=== PATIENT | female | born 1935 | race Caucasian/White ===

== ENCOUNTER → 2016-06-07 | Outpatient (CLI) | payer OTHER, MEDICARE | LOC: MW.CHIM 08:00 | PROVIDERS: ATTEND Internal Medicine | DX: I25.10 Atherosclerotic heart disease of native coronary artery without angina pectoris (principal); J44.1 Chronic obstructive pulmonary disease with (acute) exacerbation; R73.01 Impaired fasting glucose; F17.211 Nicotine dependence, cigarettes, in remission | CPT/HCPCS: G0463 ==

== ENCOUNTER → 2016-06-15 | Outpatient (CLI) | payer MEDICARE, OTHER ==
[2016-06-15 16:29] LABS: CHLORIDE,CL 107 mmol/L (98-110); SODIUM,NA 141 mmol/L (136-146)
== END ==
LOC: MW.CHIM 15:28
PROVIDERS: ATTEND Internal Medicine
DX: I20.8 Other forms of angina pectoris (principal); R06.00 Dyspnea, unspecified; I25.10 Atherosclerotic heart disease of native coronary artery without angina pectoris; J44.1 Chronic obstructive pulmonary disease with (acute) exacerbation; I50.30 Unspecified diastolic (congestive) heart failure; E78.4 Other hyperlipidemia
CPT/HCPCS: 36415; 80048; 83880; G0463

== ENCOUNTER → 2016-07-16 | Outpatient (CLI) | payer MEDICARE, OTHER ==
[2016-07-16 15:30] LABS: CHLORIDE,CL 106 mmol/L (98-110); SODIUM,NA 139 mmol/L (136-146)
== END ==
LOC: MW.CHIM 14:45
PROVIDERS: ATTEND Internal Medicine
DX: I50.30 Unspecified diastolic (congestive) heart failure (principal)
CPT/HCPCS: 36415; 80048; 87081; 87880; 99214

== ENCOUNTER → 2016-07-27 | Outpatient (CLI) | payer MEDICARE, OTHER | LOC: MW.CHGS 08:00 | PROVIDERS: ATTEND Surgery | DX: R49.9 Unspecified voice and resonance disorder (principal); K21.9 Gastro-esophageal reflux disease without esophagitis | CPT/HCPCS: 99203 ==

== ENCOUNTER → 2016-08-19 | Outpatient (CLI) | payer MEDICARE, OTHER | LOC: MW.CHIM 08:00 | PROVIDERS: ATTEND Internal Medicine | DX: I25.10 Atherosclerotic heart disease of native coronary artery without angina pectoris (principal); I50.30 Unspecified diastolic (congestive) heart failure; J44.9 Chronic obstructive pulmonary disease, unspecified; K21.9 Gastro-esophageal reflux disease without esophagitis | CPT/HCPCS: 99214 ==

== ENCOUNTER → 2016-08-20 | Outpatient (CLI) | payer MEDICARE, OTHER | LOC: MW.CHGS 08:00 | PROVIDERS: ATTEND Surgery | DX: K21.9 Gastro-esophageal reflux disease without esophagitis (principal) | CPT/HCPCS: G0463 ==

== ENCOUNTER 2016-09-08 11:56 | Day surgery (SDC) | payer MEDICARE, OTHER ==
[~2016-09-08 11:56] MED LIST: Lactated Ringers 1,000 ML IV SCH; Lidocaine 2% 5 ML SDV ONE; Propofol 200 MG/20 ML SDV ONE; Sodium Chloride 0.9% 10 ML Syringe FLUSH PRN; Sodium Chloride 0.9% 2.5 ML Syringe FLUSH PRN
--- NOTE | 2016-09-08 12:47 | PCM.PREANE ---
Preanesthetic Assessment - Anesthesia/Transfusion/Family Hx Anesthesia History: Prior Anesthesia Without Reaction Family History of Anesthesia Reaction: No Transfusion History: No Prior Transfusion(s) Intubation History: Unknown - Review of Systems General: No Symptoms Pulmonary: No Symptoms Cardiovascular: No Symptoms Gastrointestinal: Abdominal pain, Other (severe GERD) Neurological: No Symptoms Other: Reports: None - Physical Assessment Height: 1.55 m Weight: 104.326 kg ASA Class: 3 Mental Status: Alert & Oriented x3 Airway Class: Mallampati = 2 Dentition: Reports: Normal Dentition Thyro-Mental Finger Breadths: 3 Mouth Opening Finger Breadths: 3 ROM/Head Extension: Limited/Partial Lungs: Clear to auscultation, Normal respiratory effort, Decreased breath sounds Cardiovascular: Regular Rate, Regular Rhythm - Allergies Allergies/Adverse Reactions: Allergies Allergy/AdvReac Type Severity Reaction Status Date / Time Penicillins Allergy Cannot Verified 01/30/15 13:11 Remember - Blood Blood Available: No - Anesthesia Plan Pre-Op Medication Ordered: None - Acknowledgements Anesthesia Type Planned: MAC Pt an Appropriate Candidate for the Planned Anesthesia: Yes Alternatives and Risks of Anesthesia Discussed w Pt/Guardian: Yes Pt/Guardian Understands and Agrees with Anesthesia Plan: Yes PreAnesthesia Questionnaire HEENT History: Reports: Other (See Below) Other HEENT History: wears reading glasses Cardiovascular History: Reports: Arrhythmia, CAD, Heart Failure (HFpEF), High Cholesterol, Hypertension Respiratory History: Reports: COPD (severe, easy SOB) Other Respiratory History: smoked for 60 yrs, quit 4 yrs ago Gastrointestinal History: Reports: GERD (severe), Irritable Bowel Syndrome Genitourinary History: Reports: UTI, 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: , Other (See Below) Other OB/BYN History: vulvitis Musculoskeletal History: Reports: Fracture, Fibromyalgia, Osteoarthritis Other Musculoskeletal History: hx fx rt hand Psychiatric History: Reports: Anxiety, Depression Endocrine/Metabolic History: Reports: Obesity/BMI 30+ (BMI 43.5), Other (See Below) (h/o thyroiditis) - Past Surgical History Head Surgeries/Procedures: Reports: None Cardiovascular Surgical History: Reports: Cardiac Ablation Other Cardiovascular Surgeries/Procedures: hx cardiac ablation, hx angiogram, GI Surgical History: Reports: Colonoscopy Female Surgical History: Reports: Breast Biopsy (lumpectomy) Neurological Surgical History: Reports: Lumbar Spine Other Neurological Surgeries/Procedures: hx lower back surgery - SUBSTANCE USE Smoking Status *Q: Former Smoker (quit 4 years ago, smoked for about 60 years) Tobacco Use Within Last Twelve Months: No Recreational Drug Use History: No - HOME MEDS Home Medications: Home Meds Albuterol [Proventil HFA] 2 puff INH QID PRN 08/19/16 [History] Aspirin [[place] Aspirin] 81 mg PO DAILY 08/19/16 [History] Carvedilol 25 mg PO BID 08/19/16 [History] Furosemide 80 mg PO DAILY 08/19/16 [History] Pantoprazole Sodium [Protonix] 20 mg PO DAILY 08/19/16 [History] Potassium Chloride 2 tab PO DAILY 08/19/16 [History] Sertraline HCl 100 mg PO DAILY 08/19/16 [History] Tiotropium [place] [Spiriva Respimat] 2 puff INH DAILY 08/19/16 [History] atorvaSTATin Calcium [Atorvastatin Calcium] 20 mg PO DAILY 08/19/16 [History] Clobetasol [Clobetasol 0.05%] 1 applic VAG ASDIRECTED 09/03/16 [History] Cranberry 500 mg PO DAILY 09/03/16 [History] - CURRENT (IN HOUSE) MEDS Current Meds: Current Medications Lactated Ringer's (Ringers, Lactated) 1,000 mls @ 125 mls/hr IV ASDIRECTED [facility] Last Admin: 09/08/16 12:20 Dose: 125 mls/hr Sodium Chloride (Saline Flush) 10 ml FLUSH ASDIRECTED PRN PRN Reason: Keep Vein Open Sodium Chloride (Saline Flush) 2.5 ml FLUSH ASDIRECTED PRN PRN Reason: Keep Vein Open Discontinued Medications Lidocaine (Xylocaine-Mpf 2%) Confirm Administered Dose 5 ml .ROUTE .STK-MED ONE Stop: 09/08/16 11:35 Propofol (Diprivan 20 Ml) Confirm Administered Dose 400 mg .ROUTE .STK-MED ONE Stop: 09/08/16 11:36
[2016-09-08] MEDS ORDERED: Propofol 200 MG/20 ML SDV ONE (14:34)
--- NOTE | 2016-09-08 15:32 | PCM.OPNOTE ---
- General Post-Op/Procedure Note Date of Surgery/Procedure: 09/08/16 Operative Procedure(s): Diagnostic EGD Findings: Small hiatal hernia, otherwise normal Pre Op Diagnosis: Dysphagia, voice changes Post-Op Diagnosis: Hiatal hernia Anesthesia Technique: [facility] [place] Surgeon: Virginia Jacinto Condition: Good
--- NOTE | 2016-09-08 15:36 | PCM.POSTAN ---
POST ANESTHESIA ASSESSMENT - MENTAL STATUS Mental Status: alert, oriented - RESPIRATORY Respiratory Status: respiratory rate WNL, airway patent, O2 saturation stable - CARDIOVASCULAR CV Status: pulse rate WNL, blood pressure stable - GASTROINTESTINAL GI Status: no symptoms - PAIN Pain Score: 0 - POST OP HYDRATION Hydration Status: adequate & stable
--- NOTE | 2016-09-08 16:06 | PCM48HPAN ---
Post Anesthesia Note - EVALUATION WITHIN 48HRS OF ANESTHETIC Vital Signs in Normal Range: Yes Patient Participated in Evaluation: Yes Respiratory Function Stable: Yes Airway Patent: Yes Cardiovascular Function Stable: Yes Hydration Status Stable: Yes Pain Control Satisfactory: Yes Nausea and Vomiting Control Satisfactory: Yes Mental Status Recovered: Yes
[2016-09-08 16:26] VITALS: BP 125/59
--- NOTE | 2016-09-08 23:20 | OR ---
SURGEON: VIRGINIA JACINTO MD DATE OF PROCEDURE: 09/08/2016 PREOPERATIVE DIAGNOSIS: Voice changes. POSTOPERATIVE DIAGNOSIS: Hiatal hernia. PROCEDURE PERFORMED: Diagnostic EGD. ENDOSCOPIST: Virginia Jacinto MD. ANESTHESIA: MAC. EXTENT OF EXAM: To the second portion of the duodenum. INSTRUMENT USED: Olympus endoscope. PREPARATION: Good. LIMITATIONS: None. INDICATIONS: The patient is an 81-year-old female with COPD, who presents with voice changes. She went to see her ear, nose, and throat doctor, who suggested that her symptoms may be due to GERD and started her on a PPI. After the PPI was started, her symptoms slightly improved, but did not go away. The decision was made to perform a diagnostic EGD. We discussed the procedure, expected perioperative course as well as the risks including bleeding, infection, or perforation. The patient verbalized understanding and wished to proceed. PROCEDURE IN DETAIL: The patient was brought into the endoscopy suite and placed on the OR cart in a beach chair position. A time-out was completed verifying the patient's name, age, date of , allergies, and procedure to be performed. A bite block was placed in the patient's mouth and monitored anesthesia care was induced. Continuous oxygen was provided via nasal cannula throughout the procedure. A well lubricated endoscope was placed in the patient's mouth and advanced under direct visualization to the level of the second portion of the duodenum. This appeared normal and a photograph was taken. The duodenal bulb appeared normal as well. The scope was brought into the stomach and a photograph was taken of the pylorus as well as the esophageal hiatus. The esophageal hiatus appeared to be slightly enlarged suggestive of a hiatal hernia. Biopsies were taken of the gastric mucosa which overall appeared normal. These biopsies were taken in the antrum, body, and fundus. The scope was then brought into the distal esophagus and a photograph was taken of the hiatal hernia as well as the GE junction. The area did not appear particularly inflamed and no biopsies were taken. The remainder of the esophageal mucosa appeared normal. The scope was removed from the patient and the procedure terminated. The patient tolerated the procedure well and was taken to the PACU in stable condition. ENDOSCOPIC DIAGNOSIS: Hiatal hernia. RECOMMENDATIONS: Increase pantoprazole dose to 40 mg daily. We will follow up in clinic in 2 weeks. CHERYL GARCÍA /[id number]
== END 2016-09-08 16:10 | disposition home or self-care (01) ==
LOC: MW.SDS 11:56
PROVIDERS: ATTEND Surgery
PROC: 0DB68ZX Excision of Stomach, Via Natural or Artificial Opening Endoscopic, Diagnostic (ICD-10-PCS; principal; 2016-09-08)
DX: K29.50 Unspecified chronic gastritis without bleeding (principal); K44.9 Diaphragmatic hernia without obstruction or gangrene; J44.9 Chronic obstructive pulmonary disease, unspecified; I11.0 Hypertensive heart disease with heart failure; I50.9 Heart failure, unspecified; F41.9 Anxiety disorder, unspecified; M19.90 Unspecified osteoarthritis, unspecified site; I25.10 Atherosclerotic heart disease of native coronary artery without angina pectoris; M17.0 Bilateral primary osteoarthritis of knee; K21.9 Gastro-esophageal reflux disease without esophagitis; K58.9 Irritable bowel syndrome, unspecified; E06.9 Thyroiditis, unspecified; N39.0 Urinary tract infection, site not specified; F32.9 Major depressive disorder, single episode, unspecified; E66.9 Obesity, unspecified; M79.7 Fibromyalgia; Z87.891 Personal history of nicotine dependence; Z88.0 Allergy status to penicillin; Z79.82 Long term (current) use of aspirin; Z79.899 Other long term (current) drug therapy; Z98.890 Other specified postprocedural states; Z68.41 Body mass index [BMI] 40.0-44.9, adult
CPT/HCPCS: 43239; J7120; 00740; 88305; 88312; J2704

== ENCOUNTER 2017-03-27 14:19 | Emergency (ER) | payer MEDICARE, OTHER ==
[2017-03-27] MEDS ORDERED: Bupivacaine 0.5% 10 ML SDV INJECT ONE (14:23)
[2017-03-27] MEDS ORDERED: Bupivacaine 0.5% 10 ML SDV ONE (14:23)
[2017-03-27] MEDS ORDERED: ceFAZolin 1 GM in Premix Bag 1 BAG IV ONE (14:37)
[2017-03-27] MEDS ORDERED: Ondansetron 4 MG/2 ML SDV IVPUSH ONE (14:37)
[2017-03-27] MEDS ORDERED: Morphine 2 MG/ML Syringe IVPUSH ONE (14:37)
--- NOTE | 2017-03-27 14:37 | EDM.PDOC ---
ED HPI GENERAL MEDICAL PROBLEM - General Chief Complaint: Upper Extremity Injury/Pain Stated Complaint: SMASHED FINGER ON RT HAND Time Seen by Provider: 03/27/17 14:24 - History of Present Illness INITIAL COMMENTS - FREE TEXT/NARRATIVE: HISTORY AND PHYSICAL: History of present illness: Patient is an 82-year-old white female presents with concern of partial amputation of the second digit of her left hand that occurred when she caught it on a stool. She denies up-to-date tetanus denies other trauma or concern Review of systems: As per history of present illness and below otherwise all systems reviewed and negative. Past medical history: As per history of present illness and as reviewed below otherwise noncontributory. Surgical history: As per history of present illness and as reviewed below otherwise noncontributory. Social history: No reported history of drug or alcohol abuse. Family history: As per history of present illness and as reviewed below otherwise noncontributory. Physical exam: HEENT: Atraumatic, normocephalic, pupils reactive, negative for conjunctival pallor or scleral icterus, mucous membranes moist, throat clear, neck supple, nontender, trachea midline. Lungs: Clear to auscultation, breath sounds equal bilaterally, chest nontender. Heart: S1S2, regular, negative for clicks, rubs, or JVD. Abdomen: Soft, nondistended, nontender. Negative for masses or hepatosplenomegaly. Negative for costovertebral tenderness. Pelvis: Stable nontender. Genitourinary: Deferred. Rectal: Deferred. Extremities: Patient noted to have a partial amputation of the distal aspect second digit left hand was good hemostasis there is bony exposure neurovascular exam is unremarkable Neuro: Awake, alert, oriented. Cranial nerves II through XII unremarkable. Cerebellum unremarkable. Motor and sensory unremarkable throughout. Exam nonfocal. Diagnostics: X-ray left hand Therapeutics: Ancef 1 g IV morphine sulfate 2 mg IV tetanus Impression: # 1 acute left hand injury ( amputation second digit) Definitive disposition and diagnosis as appropriate pending reevaluation and review of above. - Related Data Allergies Allergy/AdvReac Type Severity Reaction Status Date / Time Penicillins Allergy Cannot Verified 03/27/17 14:26 Remember Home Meds: Home Meds Albuterol [Proventil HFA] 2 puff INH QID PRN 08/19/16 [History] Aspirin [[place] Aspirin] 81 mg PO DAILY 08/19/16 [History] Carvedilol 25 mg PO BID 08/19/16 [History] Furosemide 80 mg PO DAILY 08/19/16 [History] Potassium Chloride 2 tab PO DAILY 08/19/16 [History] Sertraline HCl 100 mg PO DAILY 08/19/16 [History] Tiotropium [place] [Spiriva Respimat] 2 puff INH DAILY 08/19/16 [History] atorvaSTATin Calcium [Atorvastatin Calcium] 20 mg PO DAILY 08/19/16 [History] Clobetasol [Clobetasol 0.05%] 1 applic VAG ASDIRECTED 09/03/16 [History] Cranberry 500 mg PO DAILY 09/03/16 [History] Pantoprazole Sodium 40 mg PO QAM #90 tablet. 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: , Other (See Below) Other OB/BYN History: vulvitis Musculoskeletal History: Reports: Fracture, Fibromyalgia, Osteoarthritis Other Musculoskeletal History: hx fx rt hand Psychiatric History: Reports: Anxiety, Depression Endocrine/Metabolic History: Reports: Obesity/BMI 30+ (BMI 43.5), Other (See Below) (h/o thyroiditis) - Past Surgical History Head Surgeries/Procedures: Reports: None Cardiovascular Surgical History: Reports: Cardiac Ablation Other Cardiovascular Surgeries/Procedures: hx cardiac ablation, hx angiogram, GI Surgical History: Reports: Colonoscopy Female Surgical History: Reports: Breast Biopsy (lumpectomy) Neurological Surgical History: Reports: Lumbar Spine Other Neurological Surgeries/Procedures: hx lower back surgery Social & Family History - Tobacco Use Smoking Status *Q: Former Smoker (quit 4 years ago, smoked for about 60 years) Packs/Tins Daily: 60 Used Tobacco, but Quit: Yes - Caffeine Use Caffeine Use: Reports: Coffee - Recreational Drug Use Recreational Drug Use: No Review of Systems - Review of Systems Review Of Systems: ROS reveals no pertinent complaints other than HPI. ED EXAM, GENERAL - Physical Exam Exam: See Below (See dictation) Course - Orders/Labs/Meds Meds: Medications Discontinued Medications Generic Name Dose Route Start Last Admin Trade Name Jenni PRN Reason Stop Dose Admin Bupivacaine HCl 10 ml 03/27/17 14:23 Sensorcaine-Mpf 0.5% INJECT 03/27/17 14:24 ONETIME ONE Bupivacaine HCl Confirm 03/27/17 14:23 Sensorcaine-Mpf 0.5% Administered 03/27/17 14:24 Dose 10 ml .ROUTE .STK-MED ONE Departure - Departure Time of Disposition: 14:36 Disposition: DC/Tfer to Acute Hospital 02 Condition: Good Clinical Impression: Hand injury - Discharge Information Referrals: PCP,None [Primary Care Provider] -
[2017-03-27] MEDS ORDERED: Diphtheria,Pertussis(Acell),Tetanus Vaccine 0.5 ML Syringe IM ONE (14:38)
[2017-03-27 16:05] VITALS: BP 124/51
--- NOTE | 2017-03-29 19:45 | CR ---
EXAM DATE: 03/27/17 PATIENT'S AGE: 82 Patient: AUDRA GALAVIZ Facility: [place], [place] Site . Site : [id number] Study: XRay Extremity Right Hand [id number]/31/[id number] 3:33:36 PM Ordering Physician: Wilian Romo Final Report: INDICATION: Trauma. Technique: Right hand 3 views. Findings: Multiple comminuted fractures of the distal phalanx of the 2nd digit. Soft tissue injuries. Stable degenerative changes with joint space narrowing. The bones are demineralized. Comparison: September 16, 2015. Dictated by Peng Acosta MD @ Mar 27 2017 3:43PM (Electronic Signature) Report Signed by Proxy. ZEB
== END 2017-03-27 16:15 ==
LOC: MW.ED 14:19
DX: S68.121A Partial traumatic metacarpophalangeal amputation of left index finger, initial encounter (principal); I50.9 Heart failure, unspecified; E78.00 Pure hypercholesterolemia, unspecified; Z87.891 Personal history of nicotine dependence; Z23 Encounter for immunization; Z88.0 Allergy status to penicillin; Z79.899 Other long term (current) drug therapy; Z79.82 Long term (current) use of aspirin; W23.1XXA Caught, crushed, jammed, or pinched between stationary objects, initial encounter
CPT/HCPCS: 73120; 90471; 90715; 96365; 96375; 99285; J0690; J2270; J2405; 99284

== ENCOUNTER 2017-07-26 07:37 | Day surgery (SDC) | payer MEDICARE, OTHER ==
[~2017-07-26 07:37] MED LIST changes: +fentaNYL 100 MCG/2 ML SDV ONE
--- NOTE | 2017-07-26 08:21 | PCM.PREANE ---
Preanesthetic Assessment - Anesthesia/Transfusion/Family Hx Anesthesia History: Prior Anesthesia Without Reaction Family History of Anesthesia Reaction: No Transfusion History: No Prior Transfusion(s) Intubation History: Unknown - Review of Systems General: No Symptoms Pulmonary: No Symptoms Cardiovascular: No Symptoms Gastrointestinal: Diarrhea, Other (change in bowel habits) Neurological: No Symptoms Other: Reports: None - Physical Assessment NPO Status Date: 07/25/17 NPO Status Time: 20:00 O2 Sat by Pulse Oximetry: 94 Respiratory Rate: 18 Vital Signs: Last Vital Signs Temp 36.9 C 07/26/17 07:53 Pulse 96 07/26/17 07:53 Resp 18 07/26/17 07:53 BP 139/64 07/26/17 07:53 Pulse Ox 94 L 07/26/17 07:53 Height: 1.55 m Weight: 99.337 kg ASA Class: 3 Mental Status: Alert & Oriented x3 Airway Class: Mallampati = 2 Dentition: Reports: Normal Dentition, Missing Tooth/Teeth (multiple) Thyro-Mental Finger Breadths: 2 Mouth Opening Finger Breadths: 2 ROM/Head Extension: Limited/Partial Lungs: Clear to Auscultation, Normal Respiratory Effort, Decreased Breath Sounds Cardiovascular: Regular Rate, Regular Rhythm - Allergies Allergies/Adverse Reactions: Allergies Allergy/AdvReac Type Severity Reaction Status Date / Time Penicillins Allergy Rash Verified 07/22/17 10:25 - Blood Blood Available: No - Anesthesia Plan Pre-Op Medication Ordered: None - Acknowledgements Anesthesia Type Planned: MAC Pt an Appropriate Candidate for the Planned Anesthesia: Yes Alternatives and Risks of Anesthesia Discussed w Pt/Guardian: Yes Pt/Guardian Understands and Agrees with Anesthesia Plan: Yes PreAnesthesia Questionnaire HEENT History: Reports: Other (See Below) Other HEENT History: uses reading glasses Cardiovascular History: Reports: Arrhythmia (h/o SVT before ablation), CAD ( mild CAD with 50% occlusion of one coronary artery in '13), Heart Failure (HFpEF ), High Cholesterol, Hypertension, Other (See Below) ( s/p ablation, not much phisical activity due to pain in her legs (bad back)) Respiratory History: Reports: COPD (severe) Other Respiratory History: hx of smoking 1 PPD for 40 years - quit 5 years ago Gastrointestinal History: Reports: Chronic Diarrhea, GERD Genitourinary History: Reports: UTI, Recurrent 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: , Other (See Below) Other OB/BYN History: vulvitis Musculoskeletal History: Reports: Arthritis, Back Pain, Chronic, Fracture, Fibromyalgia Other Musculoskeletal History: hx of fx hand (no hardware) Psychiatric History: Reports: Anxiety Endocrine/Metabolic History: Reports: Obesity/BMI 30+, Other (See Below) (h/o thyroiditis) - Past Surgical History Head Surgeries/Procedures: Reports: None Cardiovascular Surgical History: Reports: Cardiac Ablation Other Cardiovascular Surgeries/Procedures: states she had a cardiac ablation because she " kept passing out" GI Surgical History: Reports: Colonoscopy Female Surgical History: Reports: Breast Biopsy Neurological Surgical History: Reports: Laminectomy, Lumbar Spine Other Neurological Surgeries/Procedures: not sure of exact procedure- states she had back surgery because her "leg went numb" - SUBSTANCE USE Smoking Status *Q: Former Smoker Tobacco Use Within Last Twelve Months: No Recreational Drug Use History: No - HOME MEDS Home Medications: Home Meds Albuterol [Proventil HFA] 2 puff INH QID PRN 08/19/16 [History] Aspirin [[place] Aspirin] 81 mg PO DAILY 08/19/16 [History] Carvedilol 25 mg PO BID 08/19/16 [History] Furosemide 80 mg PO DAILY 08/19/16 [History] Potassium Chloride 2 tab PO DAILY 08/19/16 [History] Sertraline HCl 100 mg PO DAILY 08/19/16 [History] atorvaSTATin Calcium [Atorvastatin Calcium] 20 mg PO DAILY 08/19/16 [History] Clobetasol [Clobetasol 0.05%] 1 applic VAG ASDIRECTED 09/03/16 [History] Cranberry 500 mg PO DAILY 09/03/16 [History] Glycopyrrolate/Formoterol Fum [Bevespi Aerosphere Inhaler] 2 puff INH BID [History] Loperamide [Imodium] 2 mg PO ASDIRECTED PRN 07/22/17 [History] - CURRENT (IN HOUSE) MEDS Current Meds: Current Medications Lactated Ringer's (Ringers, Lactated) 1,000 mls @ 125 mls/hr IV ASDIRECTED [facility] Last Admin: 07/26/17 07:57 Dose: 125 mls/hr Sodium Chloride (Saline Flush) 10 ml FLUSH ASDIRECTED PRN PRN Reason: Keep Vein Open Sodium Chloride (Saline Flush) 2.5 ml FLUSH ASDIRECTED PRN PRN Reason: Keep Vein Open Sodium Chloride (Saline Flush) 10 ml FLUSH ASDIRECTED PRN PRN Reason: Keep Vein Open Sodium Chloride (Saline Flush) 2.5 ml FLUSH ASDIRECTED PRN PRN Reason: Keep Vein Open Discontinued Medications Fentanyl (Sublimaze) Confirm Administered Dose 100 mcg .ROUTE .STK-MED ONE Stop: 07/26/17 07:13 Lidocaine (Xylocaine-Mpf 2%) Confirm Administered Dose 5 ml .ROUTE .STK-MED ONE Stop: 07/26/17 07:12 Propofol (Diprivan 20 Ml) Confirm Administered Dose 400 mg .ROUTE .STK-MED ONE Stop: 07/26/17 07:13
[2017-07-26] MEDS ORDERED: Propofol 200 MG/20 ML SDV ONE (08:48)
--- NOTE | 2017-07-26 09:57 | PCM48HPAN ---
Post Anesthesia Note - EVALUATION WITHIN 48HRS OF ANESTHETIC Vital Signs in Normal Range: Yes Patient Participated in Evaluation: Yes Respiratory Function Stable: Yes Airway Patent: Yes Cardiovascular Function Stable: Yes Hydration Status Stable: Yes Pain Control Satisfactory: Yes Nausea and Vomiting Control Satisfactory: Yes Mental Status Recovered: Yes Resp Rate: 17 - COMMENTS/OBSERVATIONS Free Text/Narrative:: no anesthesia problems, due to inability to complete colonoscopy patient will need follow up radiology study today
[2017-07-26 10:13] VITALS: BP 141/76
--- NOTE | 2017-07-26 11:47 | OR ---
SURGEON: LYNN LOTT MD DATE OF PROCEDURE: 07/26/2017 PREOPERATIVE DIAGNOSIS: Fecal incontinence. POSTOPERATIVE DIAGNOSIS: Fecal incontinence, incomplete colonoscopy. PROCEDURE PERFORMED: Diagnostic colonoscopy. ANESTHESIA: MAC. INSTRUMENT USED: Olympus colonoscope. EXTENT OF EXAM: Sigmoid colon. PREPARATION: Good. LIMITATIONS: Floppy sigmoid colon that was extremely tortuous. INDICATIONS: The patient is an 82-year-old female, who presents with fecal incontinence. She has been on scheduled Imodium with no improvement in her symptoms. The decision was made to perform a diagnostic colonoscopy. In the past, previous endoscopists have had difficulty in performing colonoscopies on her. She has had incomplete colonoscopies in the past. After discussion of our options, the patient would like to attempt another colonoscopy. We discussed the procedure, expected perioperative course, and risks, including bleeding, infection, damage to surrounding structures, including perforation. The patient verbalized understanding and wishes to proceed. PROCEDURE IN DETAIL: The patient was brought into the endoscopy suite and placed in the left lateral decubitus position. A time-out was completed verifying the patient's name, age, date of , allergies, and procedure to be performed. Monitored anesthesia care was induced, and continuous oxygen was provided via nasal cannula throughout the procedure. After adequate sedation was achieved, a digital rectal exam was performed. The patient was noted to have excoriated and macerated skin around the anoderm from chronic anal leakage. The digital rectal exam itself was normal. A well-lubricated colonoscope was inserted in the rectum and attempted to be advanced. The patient had a very tortuous sigmoid colon that did not distend very well. This made it extremely difficult to advance under direct visualization around corners. I was able to get the scope to about 40 cm. However, despite multiple attempts, I was unable to advance my scope any further than this area. I did not feel comfortable continuing. The scope was then fully withdrawn, while examining the color, texture, anatomy, and integrity of the distal sigmoid colon and rectum. The patient was found to have extensive diverticulosis throughout the part of the sigmoid colon that I was able to visualize. The scope was brought into the rectum and retroflexed to allow visualization of the anal canal opening. This appeared normal and a photograph was taken. The scope was then straightened out and fully withdrawn. The patient was then transferred to the PACU in stable condition. ENDOSCOPIC DIAGNOSIS: Incomplete colonoscopy for fecal urgency. RECOMMENDATIONS: I visited with the patient in the postoperative care area. She will undergo a barium enema today. In the next 1-2 weeks, she will then undergo a CT of the abdomen and pelvis to rule out any other extracolonic disease. She should continue to take Imodium and can increase her dose if need be. I prescribed some zinc oxide cream to help protect and heal the anoderm from fecal incontinence. I will see the patient in clinic in 2 weeks. CHERYL GARCÍA /[id number]
--- NOTE | 2017-07-28 14:25 | CR ---
EXAMINATION: Single contrast barium enema HISTORY: Failed Colonoscopy COMPARISON: 12/28/2010 TECHNIQUE: Standard single contrast barium enema was performed. FINDINGS: There is moderate sigmoid diverticulosis with mild generalized narrowing of the lumen. Like ly from long-standing inflammatory changes. No focal stricture demonstrated. The colon and rectum are otherwise normally distensible. No definite filling defect. IMPRESSION: 1. Moderate sigmoid diverticulosis, otherwise unremarkable single contrast barium enema.
== END 2017-07-26 10:05 | disposition home or self-care (01) ==
LOC: MW.SDS 07:37
PROVIDERS: ATTEND Surgery
DX: R15.2 Fecal urgency (principal); K57.30 Diverticulosis of large intestine without perforation or abscess without bleeding; K56.2 Volvulus; I11.0 Hypertensive heart disease with heart failure; I50.31 Acute diastolic (congestive) heart failure; I25.118 Atherosclerotic heart disease of native coronary artery with other forms of angina pectoris; J44.1 Chronic obstructive pulmonary disease with (acute) exacerbation; J20.9 Acute bronchitis, unspecified; E06.9 Thyroiditis, unspecified; F41.9 Anxiety disorder, unspecified; K58.9 Irritable bowel syndrome, unspecified; K21.9 Gastro-esophageal reflux disease without esophagitis; Z87.891 Personal history of nicotine dependence; Z79.82 Long term (current) use of aspirin; Z79.899 Other long term (current) drug therapy
CPT/HCPCS: 45330; 74270; J3010; J7120; J2704

== ENCOUNTER 2020-07-01 15:59 | Emergency (ER) | payer MEDICARE, OTHER ==
[2020-07-01] MEDS ORDERED: Sodium Chloride 0.9% 2.5 ML Syringe FLUSH PRN (16:27)
[2020-07-01] MEDS ORDERED: Sodium Chloride 0.9% 10 ML Syringe FLUSH PRN (16:27)
--- NOTE | 2020-07-01 16:43 | PCM.EKG ---
#1 Interpretation EKG Date: 07/01/20 Time: 16:36 Rhythm: NSR Rate (Beats/Min): 67 [place]: Normal P-Wave: Present QRS: Normal ST-T: Normal QT: Normal [place]/PQ Interval: 170 Comparison: NA - No Prior EKG EKG Interpretation Comments: no ischemic changes
[2020-07-01 17:39] LABS: CARBON DIOXIDE,CO2 28.9 mmol/L (21.0-32.0); POTASSIUM,K 3.4 mmol/L (3.5-5.1)
[2020-07-01] MEDS ORDERED: Iopamidol 755 MG/ML 500 ML Multipack Bottle IVPUSH STA (19:05)
--- NOTE | 2020-07-01 19:30 | CT ---
INDICATION: RIGHT FLANK PAIN THAT RADIATES INTO THE BACK CT ABDOMEN AND PELVIS WITHOUT AND WITH CONTRAST TECHNIQUE: Multidetector CT imaging was performed through the abdomen and pelvis prior to and following intravenous contrast administration using 100 mL Isovue 370. Coronal and sagittal reconstructions were generated. COMPARISON: 01/09/2018 CT abdomen and pelvis. FINDINGS: Lower chest: Minimal bibasilar lung atelectasis or fibrosis. Liver: Within normal limits. Gallbladder and bile ducts: No gallbladder wall thickening or calcified gallstones. No biliary dilation identified. Pancreas: Unremarkable. Spleen: Normal. Adrenals: No nodules or masses. Kidneys, ureters, and urinary bladder: No urinary tract stones identified. Small right renal cortical cyst, smaller than on the previous exam. No hydronephrosis involving either kidney. Diffuse mild wall prominence of the urinary bladder due to nondistention. Gastrointestinal tract and abdominal wall: Small hiatal hernia. Normal caliber bowel without obstruction or definite wall thickening. The appendix is normal. There are numerous colonic diverticula without convincing evidence of diverticulitis. Very small fat-containing umbilical hernia is again seen. Vascular structures: Normal caliber abdominal aorta with mild atherosclerotic calcifications. Peritoneum: No free air, abscess, or significant free fluid. Lymph nodes: No pathologically enlarged nodes identified. Reproductive organs: No pelvic masses. Bones: Mild multilevel spondylosis. IMPRESSION: 1. No acute abnormality identified. No cause for the patient`s symptoms is demonstrated. 2. Nonacute findings as detailed above. ROSALBA BOLAÑOS MD [facility] Dictated by Willis Bolaños MD @ 07/01/2020 7:25:43 PM Dictated by: Willis Bolaños MD @ 07/01/2020 19:28:22 (Electronically Signed)
--- NOTE | 2020-07-01 19:35 | EDM.PDOC ---
ED HPI GENERAL MEDICAL PROBLEM - General Chief Complaint: Back Pain or Injury Stated Complaint: RT SIDE PAIN Time Seen by Provider: 07/01/20 16:00 Source of Information: Reports: Patient History Limitations: Reports: No Limitations - History of Present Illness INITIAL COMMENTS - FREE TEXT/NARRATIVE: HISTORY AND PHYSICAL: History of present illness: Patient is an 85-year-old female who presents to the ED today with concern of right-sided flank pain that has been ongoing since yesterday. Patient states she first noticed the right flank pain when she went to get up from bed y esterday and states that the pain is worse with movement or if she presses on the right side. Patient states that she was concerned she possibly had a kidney stone but states that she does not have the pain when she is sitting still or not moving. Patient states that she has not taken anything for her symptoms. Patient denies any fall or injury. Patient denies any associative symptoms. Patient has a history of hypertension, hyperlipidemia, coronary artery disease, congestive heart failure, and COPD. Patient denies any associated chest pain or shortness of breath. Patient states she does have swelling of her bilateral lower extremities, however, this is chronic and states that is actually improved right now than usual. Patient denies any loss or retention of bowel bladder function or saddle anesthesia. Patient denies fever, chills, chest pain, shortness of breath, or cough. Denies headache, neck stiff ness, change in vision, syncope, or near syncope. Denies nausea, vomiting, abdominal pain, diarrhea, constipation, or dysuria. Has not noted any blood in urine or stool. Patient has been eating and drinking appropriately. Review of systems: As per history of present illness and below otherwise all systems reviewed and negative. Past medical history: As per history of present illness and as reviewed below otherwise noncontributory. Surgical history: As per history of present illness and as reviewed below otherwise noncontributory. Social history: See social history for further information Family history: As per history of present illness and as reviewed below otherwise noncontributory. Physical exam: General: Patient is alert, oriented, and in no acute distress. Patient laying comfortably on exam table. Vitals stable and reviewed by me. HEENT: Atraumatic, normocephalic, pupils equal and reactive bilaterally, negative for conjunctival pallor or scleral icterus, mucous membranes moist, TMs normal bilaterally, throat clear, neck supple, nontender, trachea midline. No drooling or trismus noted. No meningeal signs. No hot potato voice noted. Lungs: Clear to auscultation, breath sounds equal bilaterally, chest nontender. Heart: S1S2, regular rate and rhythm without overt murmur Abdomen: Soft, nondistended, nontender. Patient does have recreation of her symptoms to palpation of the right flank area, negative for masses or hepatosplenomegaly. Negative for costovertebral tenderness. Pelvis: Stable nontender. Genitourinary: Deferred. Rectal: Deferred. Skin: Intact, warm, dry. No lesions or rashes noted. Extremities: No obvious deformity of the complete spine. No step-offs, crepitus, or point tenderness to palpation of the complete spine. Patient has full range of motion of the complete spine but does have pain of her right flank area with range of motion of the thoracic and lumbar spine. 2+ bilateral pitting edema of the lower extremities which patient states is improved from baseline. Has full range of motion of bilateral upper and lower extremities without pain or difficulty. Patient does have difficult with moving from a lying to sitting position due to right side/flank pain. Patient also has difficulty from the sitting to standing position due to the right flank pain. Once patient is standing, she is able to ambulate without difficulty. She does have pain to palpation of the right flank area which is nonspecific without CVA tenderness. She does not have any pain overlying the spine or right hip. Otherwise, atraumatic, negative for cords or calf pain. Neurovascular unremarkable. Neuro: Awake, alert, oriented. Cranial nerves II through XII unremarkable. Cerebellum unremarkable. Motor and sensory unremarkable throughout. Exam nonfocal. Notes: On initial exam, patient is vitally stable and well-appearing laying on exam table. However, patient does have significant pain when doing from a laying position to sitting and from sitting to standing of her right flank. She does have pain to palpation of her right flank into the right sided abdomen on exam. Pain routine lab work and scan of the abdomen and pelvis with contrast. Patient declines any pain medications today in the ED including nonnarcotic pain med ication. See Dr. Pandey's dictation for specific EKG interpretation. No STEMI or acute findings CBC, CMP, lipase, and urinalysis are unremarkable. Abdominal pelvic CT shows no acute abnormalities identified. No cause for patient's symptoms is demonstrated. However, patient does have difficulty with getting from a laying to sitting position and sitting to standing position due to right flank pain. Patient does have reproducible right sided flank pain that extends to the right abdomen on exam which is exacerbated with movement or palpation of the area which I suspect is likely musculoskeletal in the presence of unremarkable lab work, urinalysis, and abd/pelvic ct scan. Admission for observation was offered to patient due to concern for ambulation at home, however patient declines at this time as she would prefer to be at home and does not feel she is a fall risk. All risks versus benefits discussed with patient and expresses understanding. Strict return precautions thoroughly di scussed with patient. Discussed importance for follow-up with her primary care provider. Voices understanding and is agreeable to plan of care. Denies any further questions or concerns at this time. Diagnostics: CBC, CMP, UA, EKG, Lipase, Abd/Pelvic CT w cont Therapeutics: Toradol, Morphine offered but patient declines as she does not like pain medication Prescription: Lidocaine patches Impression: Right flank pain Plan: 1. Rest, ice, elevate the affected area, You can apply ice 15 minutes on, 15 minutes off. 2. Tylenol as directed for pain management or discomfort. Use lidocaine patch as directed for pain. 3. Follow up with the primary care provider as discussed. Return to the ED as needed and as discussed. Definitive disposition and diagnosis as appropriate pending reevaluation and review of above. Right back/flank Pain Score (Numeric/FACES): 9 - Related Data Allergies Allergy/AdvReac Type Severity Reaction Status Date / Time Penicillins Allergy Rash Verified 07/01/20 16:10 Home Meds: Home Meds Albuterol [Proventil HFA] 2 puff INH QID PRN 08/19/16 [History] Aspirin [[place] Aspirin EC] 81 mg PO DAILY 08/19/16 [History] Furosemide 80 mg PO DAILY 08/19/16 [History] Potassium Chloride 2 tab PO DAILY 08/19/16 [History] Sertraline HCl 100 mg PO DAILY 08/19/16 [History] atorvaSTATin Calcium [Atorvastatin Calcium] 20 mg PO DAILY 08/19/16 [History] carvediloL [Carvedilol] 25 mg PO BID 08/19/16 [History] Clobetasol [Clobetasol 0.05%] 1 applic VAG ASDIRECTED 09/03/16 [History] Cranberry 500 mg PO DAILY 09/03/16 [History] Glycopyrrolate/Formoterol Fum [Bevespi Aerosphere Inhaler] 2 puff INH BID 07/22/17 [History] Loperamide [Imodium] 2 mg PO ASDIRECTED PRN 07/22/17 [History] Loperamide [Immodium] 2 mg PO ASDIRECTED #60 cup 07/26/17 [Rx] Zinc Oxide [Desitin Creamy Diaper Rash Crm] 1 applic TOP BID #1 tube 07/26/17 [Rx] Cholecalciferol (Vitamin D3) [Vitamin D] 1 tab PO DAILY 01/09/18 [History] Lidocaine/Menthol [Lidall 4%-1% Patch] 1 each TP DAILY PRN #7 adh..patch 07/01/20 [Rx] Past Medical History HEENT History: Reports: Other (See Below) Other HEENT History: uses reading glasses Cardiovascular History: Reports: Arrhythmia, CAD, Heart Failure, High Cholestero l, Hypertension, Other (See Below) Respiratory History: Reports: COPD Other Respiratory History: hx of smoking 1 PPD for 40 years - quit 5 years ago Gastrointestinal History: Reports: Chronic Diarrhea, GERD Genitourinary History: Reports: UTI, Recurrent DRESS FINISHER History: Reports: , Other (See Below) Other DRESS FINISHER History: vulvitis Musculoskeletal History: Reports: Arthritis, Back Pain, Chronic, Fracture, Fibromyalgia Other Musculoskeletal History: hx of fx hand (no hardware) Neurological History: Reports: None Psychiatric History: Reports: Anxiety Endocrine/Metabolic History: Reports: Obesity/BMI 30+, Other (See Below) Hematologic History: Reports: None Immunologic History: Reports: None Oncologic (Cancer) History: Reports: None Dermatologic History: Reports: None - Infectious Disease History Infectious Disease History: Reports: Chicken Pox, Measles, Mumps - Past Surgical History Head Surgeries/Procedures: Reports: None HEENT Surgical History: Reports: None Cardiovascular Surgical History: Reports: Cardiac Ablation Other Cardiovascular Surgeries/Procedures: states she had a cardiac ablation because she " kept passing out" Respiratory Surgical History: Reports: None GI Surgical History: Reports: Colonoscopy Female Surgical History: Reports: Breast Biopsy Endocrine Surgical History: Reports: None Neurological Surgical History: Reports: Laminectomy, Lumbar Spine Other Neurological Surgeries/Procedures: not sure of exact procedure- states she had back surgery because her "leg went numb" Musculoskeletal Surgical History: Reports: None Oncologic Surgical History: Reports: None Dermatological Surgical History: Reports: None Social & Family History - Family History Family Medical History: No Pertinent Family History - Tobacco Use Tobacco Use Status *Q: Never Tobacco User - Caffeine Use Caffeine Use: Reports: None - Recreational Drug Use Recreational Drug Use: No ED ROS GENERAL - Review of Systems Review Of Systems: Comprehensive ROS is negative, except as noted in HPI. ED EXAM, GENERAL - Physical Exam Exam: See Below (see dictation) Course - Vital Signs Last Recorded V/S: Last Vital Signs Temp 98.1 F 07/01/20 16:10 Pulse 76 07/01/20 17:53 Resp 18 07/01/20 16:10 BP 127/47 L 07/01/20 17:53 Pulse Ox 95 07/01/20 17:53 - Orders/Labs/Meds Orders: Active Orders 24 hr Category Date Time Status EKG Documentation Completion [RC] STAT Care 07/01/20 16:28 Active CULTURE URINE [RM] Stat Lab 07/01/20 17:58 Received Sodium Chloride 0.9% [Saline Flush] Med 07/01/20 16:27 Active 10 ml FLUSH ASDIRECTED PRN Sodium Chloride 0.9% [Saline Flush] Med 07/01/20 16:27 Active 2.5 ml FLUSH ASDIRECTED PRN Saline Lock Insert [OM.PC] Stat Oth 07/01/20 16:27 Ordered Medication Orders Sodium Chloride (Sodium Chloride 0.9% 10 Ml Syringe) 10 ml FLUSH ASDIRECTED PRN PRN Reason: Keep Vein Open Last Admin: 07/01/20 16:52 Dose: 10 ml Documented by: MEGA Sodium Chloride (Sodium Chloride 0.9% 2.5 Ml Syringe) 2.5 ml FLUSH ASDIRECTED PRN PRN Reason: Keep Vein Open Last Admin: 07/01/20 16:52 Dose: 2.5 ml Documented by: MEGA Labs: Laboratory Tests 07/01/20 07/01/20 07/01/20 Range/Units 16:27 16:27 17:58 WBC 5.58 (4.0-11.0) K/uL RBC 3.94 L (4.30-5.90) M/uL Hgb 12.2 (12.0-16.0) g/dL Hct 37.6 (36.0-46.0) % MCV 95.4 (80.0-98.0) fL MCH 31.0 (27.0-32.0) pg MCHC 32.4 (31.0-37.0) g/dL RDW Std Deviation 47.1 (28.0-62.0) fl RDW Coeff of [place] 14 (11.0-15.0) % Plt Count 230 (150-400) K/uL MPV 8.80 (7.40-12.00) fL Neut % (Auto) 56.9 (48.0-80.0) % Lymph % (Auto) 28.7 (16.0-40.0) % [place] % (Auto) 10.8 (0.0-15.0) % Eos % (Auto) 3.2 (0.0-7.0) % Baso % (Auto) 0.4 (0.0-1.5) % Neut # (Auto) 3.2 (1.4-5.7) K/uL Lymph # (Auto) 1.6 (0.6-2.4) K/uL [place] # (Auto) 0.6 (0.0-0.8) K/uL Eos # (Auto) 0.2 (0.0-0.7) K/uL Baso # (Auto) 0.0 (0.0-0.1) K/uL Nucleated RBC % 0.0 /100WBC Nucleated RBCs # 0 K/uL Sodium 139 (136-145) mmol/L Potassium 3.4 L (3.5-5.1) mmol/L Chloride 105 (98-107) mmol/L Carbon Dioxide 28.9 (21.0-32.0) mmol/L BUN 18 (7.0-18.0) mg/dL Creatinine 1.0 (0.6-1.0) mg/dL Est Cr Clr Drug Dosing 31.60 mL/min Estimated GFR (MDRD) 52.8 ml/min Glucose 102 (74-106) mg/dL Calcium 8.6 (8.5-10.1) mg/dL Total Bilirubin 0.4 (0.2-1.0) mg/dL AST 25 (15-37) IU/L ALT 30 (14-63) IU/L Alkaline Phosphatase 73 (46-116) U/L Total Protein 6.9 (6.4-8.2) g/dL Albumin 3.2 L (3.4-5.0) g/dL Globulin 3.7 (2.6-4.0) g/dL Albumin/Globulin Ratio 0.9 (0.9-1.6) Lipase 123 (73-393) U/L Urine Color YELLOW Urine Appearance HAZY Urine pH 6.0 (5.0-8.0) Ur Specific [place] 1.020 (1.001-1.035) Urine Protein NEGATIVE (NEGATIVE) mg/dL Urine Glucose (UA) NEGATIVE (NEGATIVE) mg/dL Urine Ketones NEGATIVE (NEGATIVE) mg/dL Urine Occult Blood TRACE-INTACT H (NEGATIVE) Urine Nitrite NEGATIVE (NEGATIVE) Urine Bilirubin NEGATIVE (NEGATIVE) Urine Urobilinogen 0.2 (<2.0) EU/dL Ur Leukocyte Esterase TRACE H (NEGATIVE) Urine RBC 0-2 (0-2/HPF) Urine WBC 0-4 (0-5/HPF) Ur Epithelial Cells OCCASIONAL (NONE-FEW) Urine Bacteria FEW (NEGATIVE) Meds: Medications Generic Name Dose Route Start Last Admin Trade Name Freq PRN Reason Stop Dose Admin Sodium Chloride 10 ml 07/01/20 16:27 07/01/20 16:52 Sodium Chloride 0.9% 10 Ml Syringe FLUSH 10 ml ASDIRECTED PRN Administration Keep Vein Open Sodium Chloride 2.5 ml 07/01/20 16:27 07/01/20 16:52 Sodium Chloride 0.9% 2.5 Ml Syringe FLUSH 2.5 ml ASDIRECTED PRN Administration Keep Vein Open Discontinued Medications Generic Name Dose Route Start Last Admin Trade Name Freq PRN Reason Stop Dose Admin Iopamidol 100 ml 07/01/20 19:05 07/01/20 19:06 Iopamidol 755 Mg/Ml 500 Ml Multipack Bottle IVPUSH 07/01/20 19:06 100 ml ONETIME STA Administration Departure - Departure Time of Disposition: 19:51 Disposition: Home, Self-Care 01 Clinical Impression: Right flank pain - Discharge Information Prescriptions: Lidocaine/Menthol [Lidall 4%-1% Patch] 1 each TP DAILY PRN #7 adh..patch PRN Reason: Pain Referrals: Winston Sierra MD [Primary Care Provider] - Forms: ED Department Discharge Additional Instructions: The following information is given to patients seen in the emergency department who are being discharged to home. This information is to outline your options for follow-up care. We provide all patients seen in our emergency department with a follow-up referral. The need for follow-up, as well as the timing and circumstances, are variable depending upon the specifics of your emergency department visit. If you don't have a primary care physician on staff, we will provide you with a referral. We always advise you to contact your personal physician following an emergency department visit to inform them of the circumstance of the visit and for follow-up with them and/or the need for any referrals to a consulting specialist. The emergency department will also refer you to a specialist when appropriate. This referral assures that you have the opportunity for follow-up care with a specialist. All of these measure are taken in an effort to provide you with optimal care, which includes your follow-up. Under all circumstances we always encourage you to contact your private physician who remains a resource for coordinating your care. When calling for follow-up care, please make the office aware that this follow-up is from your recent emergency room visit. If for any reason you are refused follow-up, please contact the [facility] Emergency Department at and asked to speak to the emergency department charge nurse. [facility] [address] [place] [id number] [place] [phone] 1. Rest, ice, elevate the affected area, You can apply ice 15 minutes on, 15 minutes off. 2. Tylenol as directed for pain management or discomfort. Use lidocaine patch as directed for pain. 3. Follow up with the primary care provider as discussed. Return to the ED as needed and as discussed. Sepsis Event Note (ED) - Evaluation Sepsis Screening Result: No Definite Risk - Focused Exam Vital Signs: Vital Signs Temp Pulse Resp BP Pulse Ox 07/01/20 17:53 76 127/47 L 95 07/01/20 16:10 98.1 F 84 18 128/58 L 98 - My Orders Last 24 Hours: My Active Orders 07/01/20 16:27 Sodium Chloride 0.9% [Saline Flush] 10 ml FLUSH ASDIRECTED PRN Sodium Chloride 0.9% [Saline Flush] 2.5 ml FLUSH ASDIRECTED PRN Saline Lock Insert [OM.PC] Stat 07/01/20 16:28 EKG Documentation Completion [RC] STAT 07/01/20 17:58 CULTURE URINE [RM] Stat - Assessment/Plan Last 24 Hours: My Active Orders 07/01/20 16:27 Sodium Chloride 0.9% [Saline Flush] 10 ml FLUSH ASDIRECTED PRN Sodium Chloride 0.9% [Saline Flush] 2.5 ml FLUSH ASDIRECTED PRN Saline Lock Insert [OM.PC] Stat 07/01/20 16:28 EKG Documentation Completion [RC] STAT 07/01/20 17:58 CULTURE URINE [RM] Stat
[2020-07-01 20:11] VITALS: BP 131/51; PULSE 90
== END 2020-07-01 20:13 | disposition home or self-care (01) ==
LOC: MW.ED 15:59
DX: R10.9 Unspecified abdominal pain (principal); I25.10 Atherosclerotic heart disease of native coronary artery without angina pectoris; E78.00 Pure hypercholesterolemia, unspecified; I11.0 Hypertensive heart disease with heart failure; I50.9 Heart failure, unspecified; M19.90 Unspecified osteoarthritis, unspecified site; J44.9 Chronic obstructive pulmonary disease, unspecified; E66.9 Obesity, unspecified; Z68.39 Body mass index [BMI] 39.0-39.9, adult; Z87.891 Personal history of nicotine dependence; Z79.82 Long term (current) use of aspirin; Z79.899 Other long term (current) drug therapy; Z88.0 Allergy status to penicillin
CPT/HCPCS: 74178; 80053; 81001; 83690; 85025; 87086; 93005; 99284; Q9967; 93010

== ENCOUNTER 2021-02-21 10:43 | Emergency (ER) | payer MEDICARE, OTHER ==
--- NOTE | 2021-02-21 11:21 | EDM.PDOC ---
ED HPI GENERAL MEDICAL PROBLEM - General Chief Complaint: Respiratory Problem Stated Complaint: SOB/ HAS BEEN EXPOSED TO COVID RECENTLY/ COVID SYM Time Seen by Provider: 02/21/21 10:47 Source of Information: Reports: Patient History Limitations: Reports: No Limitations - History of Present Illness INITIAL COMMENTS - FREE TEXT/NARRATIVE: HISTORY AND PHYSICAL: History of present illness: The patient is an 85-year-old female who presents to the emergency department with complaints of "felling like a truck ran over me" that started this morning when she woke up. The patient has some mild nausea and was unable to eat this morning. The patient has her 2 initial Moderna vaccinations for COVID-19. The patient states that she has chronic diarrhea. She states that she is extremely tired and feels a little short of breath. Patient denies any fever, chills, headache, change in vision, syncope or near syncope. Denies any chest pain, back pain. Denies any abdominal pain, vomiting, constipation or dysuria. Has not noted any blood in urine or stool. Review of systems: As per history of present illness and below otherwise all systems reviewed and negative. Past medical history: As per history of present illness and as reviewed below otherwise noncontributory. Surgical history: As per history of present illness and as reviewed below otherwise noncontributory. Social history: See social history for further information Family history: As per history of present illness and as reviewed below otherwise noncontributory. Physical exam: General: Well developed and well nourished. Alert and orientated x 3. Nontoxic in appearance and in no acute distress. Vital signs are stable and have been reviewed by me. Nursing notes were reviewed. HEENT: Atraumatic, normocephalic, pupils equal and reactive bilaterally, negative for conjunctival pallor or scleral icterus, mucous membranes moist, TMs normal bilaterally, throat clear, neck supple, nontender, trachea midline. No drooling or trismus noted. No meningeal signs. No hot potato voice noted. Lungs: Clear to auscultation bilaterally. No wheezes, rales, or rhonchi. Chest nontender. Normal work of breathing, no accessory muscles used. Heart: S1S2, regular rate and rhythm without overt murmur, gallops, or rubs. No JVD. No peripheral edema Abdomen: Soft, nondistended, nontender. Normoactive bowel sounds. Negative for masses or costovertebral tenderness. Skin: Intact, warm, dry. No lesions or rashes noted. Hematologic: No petechiae or purpra. Mucosa appropriate color and normal nail bed color and refill. Extremities: Atraumatic, moves all extremities per self without difficulty or deficits, negative for cords or calf pain. Neurovascular unremarkable. Neuro: Awake, alert, oriented. Cranial nerves II through XII unremarkable. Cerebellum unremarkable. Motor and sensory unremarkable throughout. Exam nonfocal. Psychiatric: Mood and affect are appropriate. Normal thought process. Answering questions appropriately. Notes: *This patient was seen and evaluated during the 2019 SARS-CoV-2 novel coronavirus pandemic period. Community viral transmission is ongoing at time of this encounter and the emergency department is operating under pandemic response procedures. Stated above the patient is an 85-year-old female who presents to the emergency room with complaints of doing like a truck letter today. The patient has not had possible exposure to COVID-19 and as such I will do a COVID-19 work-up. The patient's CBC is significant for a white blood cell count of 3.9 and hemoglobin of 11.5. Patient's chemistry panel is significant for a sodium of 146, chloride of 109, glucose 114. The CRP is 0.4. The patient's COVID-19 swab is negative. Inform the patient of her test results and she informed me that her daughter had just called her and told her that she was indeed positive for COVID-19. As the daughter and the mother spend the majority of the time together I informed the patient that she most likely has COVID-19 2. The patient's symptoms just started today and as such I told her she needed to get tested at around day 4 of her symptoms. The patient can go to the walk-in [facility]. Discussed with the patient the need to get an oxygen saturation to monitor her O2 saturation percentage. I also told the patient that if she were to have blue-tinged lips she would need to return to the emergency department. The patient was agreeable with this discharge plan. I have talked with the patient about today's findings, in addition to providing specific details for plan of care. Reassessment at the time of disposition demonstrates that the patient is in no acute distress. The patient is stable for discharge, counseling was provided and we discussed in great detail signs a nd symptoms that would prompt them to return to the Emergency Department. Medication, follow up and supportive care measures were reviewed and discussed. Voices understanding and is agreeable to plan of care. Denies any further questions or concerns at this time. Diagnostics: CBC, CMP, chest x-ray, CRP, COVID-19 swab Impression: Cough, shortness of breath Plan: 1. You were evaluated today on an emergent basis. Your complaints of feeling like you were ran over by a bus, fatigue, and decreased appetite was evaluated with blood work, chest x-ray, and a COVID-19 swab. Your blood work did not reveal anything significant. Your chest x-ray was normal. Your COVID-19 swab was negative. However, this is your first day of symptoms and as your daughter just tested positive for COVID-19 you need to be retested at the walk-in clinic on day 4 of your symptoms. 1b. As we discussed obtain a portable oxygen finger monitor and if your oxygen saturation drops below 90% you need to return to the emergency department also if you notice that you have a blue tinge to your lips you need to return to the emergency department. 2. You can alternate Tylenol and ibuprofen as needed for pain and fever management. 3. We encourage you to follow up with your primary care provider and/or recommended specialist in the next few days for re-evaluation and further care/management. 4. If your symptoms should worsen, new symptoms develop or any of the signs and symptoms we discussed should arise please return to the emergency room or call 911 (if needed). Definitive disposition and diagnosis as appropriate pending reevaluation and review of above. - Related Data Allergies Allergy/AdvReac Type Severity Reaction Status Date / Time Penicillins Allergy Rash Verified 07/01/20 16:10 Home Meds: Home Meds Albuterol [Proventil HFA] 2 puff INH QID PRN 08/19/16 [History] Aspirin [Kings Aspirin EC] 81 mg PO DAILY 08/19/16 [History] Furosemide 80 mg PO DAILY 08/19/16 [History] Potassium Chloride 2 tab PO DAILY 08/19/16 [History] Sertraline HCl 100 mg PO DAILY 08/19/16 [History] atorvaSTATin Calcium [Atorvastatin Calcium] 20 mg PO DAILY 08/19/16 [History] carvediloL [Carvedilol] 25 mg PO BID 08/19/16 [History] Clobetasol [Clobetasol 0.05%] 1 applic VAG ASDIRECTED 09/03/16 [History] Cranberry 500 mg PO DAILY 09/03/16 [History] Glycopyrrolate/Formoterol Fum [Bevespi Aerosphere Inhaler] 2 puff INH BID 07/22/17 [History] Loperamide [Imodium] 2 mg PO ASDIRECTED PRN 07/22/17 [History] Loperamide [Immodium] 2 mg PO ASDIRECTED #60 cup 07/26/17 [Rx] Zinc Oxide [Desitin Creamy Diaper Rash Crm] 1 applic TOP BID #1 tube 07/26/17 [Rx] Cholecalciferol (Vitamin D3) [Vitamin D] 1 tab PO DAILY 01/09/18 [History] Lidocaine/Menthol [Lidall 4%-1% Patch] 1 each TP DAILY PRN #7 adh..patch 07/01/20 [Rx] Sulfamethoxazole/Trimethoprim [Bactrim Ds Tablet] 1 each PO BID 5 Days #10 tablet 07/04/20 [Rx] Sulfamethoxazole/Trimethoprim [Bactrim Ds Tablet] 1 each PO BID 5 Days #10 tablet 07/04/20 [Rx] Past Medical History HEENT History: Reports: Other (See Below) Other HEENT History: uses reading glasses Cardiovascular History: Reports: Arrhythmia, CAD, Heart Failure, High Cholesterol, Hypertension, Other (See Below) Respiratory History: Reports: COPD Other Respiratory History: hx of smoking 1 PPD for 40 years - quit 5 years ago Gastrointestinal History: Reports: Chronic Diarrhea, GERD Genitourinary History: Reports: UTI, 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: , Other (See Below) Other WINDOWS PHONE DEVELOPER History: vulvitis Musculoskeletal History: Reports: Arthritis, Back Pain, Chronic, Fracture, Fibromyalgia Other Musculoskeletal History: hx of fx hand (no hardware) Neurological History: Reports: None Psychiatric History: Reports: Anxiety Endocrine/Metabolic History: Reports: Obesity/BMI 30+, Other (See Below) Hematologic History: Reports: None Immunologic History: Reports: None Oncologic (Cancer) History: Reports: None Dermatologic History: Reports: None - Infectious Disease History Infectious Disease History: Reports: Chicken Pox, Measles, Mumps - Past Surgical History Head Surgeries/Procedures: Reports: None HEENT Surgical History: Reports: None Cardiovascular Surgical History: Reports: Cardiac Ablation Other Cardiovascular Surgeries/Procedures: states she had a cardiac ablation because she " kept passing out" Respiratory Surgical History: Reports: None GI Surgical History: Reports: Colonoscopy Female Surgical History: Reports: Breast Biopsy Endocrine Surgical History: Reports: None Neurological Surgical History: Reports: Laminectomy, Lumbar Spine Other Neurological Surgeries/Procedures: not sure of exact procedure- states she had back surgery because her "leg went numb" Musculoskeletal Surgical History: Reports: None Oncologic Surgical History: Reports: None Dermatological Surgical History: Reports: None Social & Family History - Family History Family Medical History: No Pertinent Family History - Tobacco Use Tobacco Use Status *Q: Never Tobacco User Second Hand Smoke Exposure: No - Caffeine Use Caffeine Use: Reports: Coffee - Recreational Drug Use Recreational Drug Use: No ED ROS GENERAL - Review of Systems Review Of Systems: Comprehensive ROS is negative, except as noted in HPI. ED EXAM, GENERAL - Physical Exam Exam: See Below (See dictation) Course - Vital Signs Last Recorded V/S: Last Vital Signs Temp 97.7 F 02/21/21 13:13 Pulse 76 02/21/21 13:13 Resp 16 02/21/21 13:13 BP 103/68 02/21/21 13:13 Pulse Ox 97 02/21/21 13:13 - Orders/Labs/Meds Labs: Laboratory Tests 02/21/21 02/21/21 02/21/21 Range/Units 11:05 11:57 11:57 WBC 3.91 L (4.0-11.0) K/uL RBC 3.72 L (4.30-5.90) M/uL Hgb 11.5 L (12.0-16.0) g/dL Hct 35.0 L (36.0-46.0) % MCV 94.1 (80.0-98.0) fL MCH 30.9 (27.0-32.0) pg MCHC 32.9 (31.0-37.0) g/dL RDW Std Deviation 47.3 (28.0-62.0) fl RDW Coeff of Merline 14 (11.0-15.0) % Plt Count 210 (150-400) K/uL MPV 9.10 (7.40-12.00) fL Neut % (Auto) 52.7 (48.0-80.0) % Lymph % (Auto) 33.5 (16.0-40.0) % [place] % (Auto) 9.2 (0.0-15.0) % Eos % (Auto) 4.1 (0.0-7.0) % Baso % (Auto) 0.5 (0.0-1.5) % Neut # (Auto) 2.1 (1.4-5.7) K/uL Lymph # (Auto) 1.3 (0.6-2.4) K/uL [place] # (Auto) 0.4 (0.0-0.8) K/uL Eos # (Auto) 0.2 (0.0-0.7) K/uL Baso # (Auto) 0.0 (0.0-0.1) K/uL Nucleated RBC % 0.0 /100WBC Nucleated RBCs # 0 K/uL Sodium 146 H (136-145) mmol/L Potassium 4.0 (3.5-5.1) mmol/L Chloride 109 H (98-107) mmol/L Carbon Dioxide 29.0 (21.0-32.0) mmol/L BUN 15 (7.0-18.0) mg/dL Creatinine 0.7 (0.6-1.0) mg/dL Est Cr Clr Drug Dosing 45.14 mL/min Estimated GFR (MDRD) > 60.0 ml/min Glucose 114 H (74-106) mg/dL Calcium 8.6 (8.5-10.1) mg/dL Total Bilirubin 0.4 (0.2-1.0) mg/dL AST 18 (15-37) IU/L ALT 17 (14-63) IU/L Alkaline Phosphatase 83 (46-116) U/L C-Reactive Protein 0.40 (0.00-0.90) mg/dL Total Protein 6.6 (6.4-8.2) g/dL Albumin 3.0 L (3.4-5.0) g/dL Globulin 3.6 (2.6-4.0) g/dL Albumin/Globulin Ratio 0.8 L (0.9-1.6) SARS-CoV-2 RNA (MARIBEL) NEGATIVE (NEGATIVE) Departure - Departure Time of Disposition: 13:05 Disposition: Home, Self-Care 01 Condition: Good Clinical Impression: Cough, Shortness of breath - Discharge Information *PRESCRIPTION DRUG MONITORING PROGRAM REVIEWED*: Not Applicable *COPY OF PRESCRIPTION DRUG MONITORING REPORT IN PATIENT KWAN: Not Applicable Instructions: Shortness of Breath, Adult, [id number], Cough, Adult, [id number] Referrals: PCP,None [Primary Care Provider] - Forms: ED Department Discharge Additional Instructions: The following information is given to patients seen in the emergency department who are being discharged to home. This information is to outline your options for follow-up care. We provide all patients seen in our emergency department with a follow-up referral. The need for follow-up, as well as the timing and circumstances, are variable depending upon the specifics of your emergency department visit. If you don't have a primary care physician on staff, we will provide you with a referral. We always advise you to contact your personal physician following an emergency department visit to inform them of the circumstance of the visit and for follow-up with them and/or the need for any referrals to a consulting specialist. The emergency department will also refer you to a specialist when appropriate. This referral assures that you have the opportunity for follow-up care with a specialist. All of these measure are taken in an effort to provide you with optimal care, which includes your follow-up. Under all circumstances we always encourage you to contact your private physician who remains a resource for coordinating your care. When calling for follow-up care, please make the office aware that this follow-up is from your recent emergency room visit. If for any reason you are refused follow-up, please contact the [facility] Emergency Department at and asked to speak to the emergency department charge nurse. [facility] [address] [place] [address] [id number] [address] [address] Plan: 1. You were evaluated today on an emergent basis. Your complaints of feeling like you were ran over by a bus, fatigue, and decreased appetite was evaluated with blood work, chest x-ray, and a COVID-19 swab. Your blood work did not reveal anything significant. Your chest x-ray was normal. Your COVID-19 swab was negative. However, this is your first day of symptoms and as your daughter just tested positive for COVID-19 you need to be retested at the walk-in clinic on day 4 of your symptoms. 1b. As we discussed obtain a portable oxygen finger monitor and if your oxygen saturation drops below 90% you need to return to the emergency department also if you notice that you have a blue tinge to your lips you need to return to the emergency department. 2. You can alternate Tylenol and ibuprofen as needed for pain and fever management. 3. We encourage you to follow up with your primary care provider and/or recommended specialist in the next few days for re-evaluation and further care/management. 4. If your symptoms should worsen, new symptoms develop or any of the signs and symptoms we discussed should arise please return to the emergency room or call 911 (if needed). Sepsis Event Note (ED) - Evaluation Sepsis Screening Result: No Definite Risk - Focused Exam Vital Signs: Vital Signs Temp Pulse Resp BP Pulse Ox 02/21/21 13:13 97.7 F 76 16 103/68 97 02/21/21 12:23 98.1 F 82 16 132/64 96 02/21/21 10:59 97.3 F 97 16 137/52 L 97
--- NOTE | 2021-02-21 12:11 | PCM.EKG ---
#1 Interpretation EKG Date: 02/21/21 Time: 11:56 Rhythm: NSR Rate (Beats/Min): 72 [place]: Normal P-Wave: Present QRS: Normal ST-T: Normal QT: Normal OR/PQ Interval: 166 EKG Interpretation Comments: Normal EKG, no acute ischemic changes identified
[2021-02-21 12:43] LABS: BLOOD UREA NITROGEN,BUN 15 mg/dL (7.0-18.0); CHLORIDE,CL 109 mmol/L (98-107); GLUCOSE RANDOM 114 mg/dL (74-106); SODIUM,NA 146 mmol/L (136-145)
--- NOTE | 2021-02-21 12:54 | CR ---
INDICATION: Cough. TECHNIQUE: Chest 1 views. COMPARISON: 01/18/2018. FINDINGS: Cardiovascular and mediastinum: Heart size and vasculature are normal in caliber and appearance. Lungs and pleural spaces: Lungs are clear. No sign of infiltrate or mass. No sign of pleural effusion. No pneumothorax. Bones and soft tissues: No significant findings. IMPRESSION: No acute findings and no significant changes from the prior exam. No sign of pneumonia. Dictated by Olayinka Nash MD @ 02/21/2021 12:53:51 PM (Electronically Signed)
[2021-02-21 13:14] VITALS: BP 103/68; PULSE 76
== END 2021-02-21 13:17 | disposition home or self-care (01) ==
LOC: MW.ED 10:43
DX: R05.9 Cough, unspecified (principal); R06.02 Shortness of breath; I25.10 Atherosclerotic heart disease of native coronary artery without angina pectoris; I11.0 Hypertensive heart disease with heart failure; I50.9 Heart failure, unspecified; E78.00 Pure hypercholesterolemia, unspecified; J44.9 Chronic obstructive pulmonary disease, unspecified; M19.90 Unspecified osteoarthritis, unspecified site; E66.9 Obesity, unspecified; Z68.39 Body mass index [BMI] 39.0-39.9, adult; Z87.891 Personal history of nicotine dependence; Z88.0 Allergy status to penicillin; Z79.82 Long term (current) use of aspirin; Z79.899 Other long term (current) drug therapy; Z20.822 Contact with and (suspected) exposure to COVID-19
CPT/HCPCS: 36415; 71045; 80053; 85025; 86140; 87804; 93005; 99285; U0002

== ENCOUNTER 2021-04-27 13:28 | Emergency (ER) | payer MEDICARE, OTHER ==
[2021-04-27 13:35] VITALS: BP 147/82; PULSE 103
== END 2021-04-27 14:54 | disposition home or self-care (01) ==
LOC: MW.ED 13:28
DX: T18.198A Other foreign object in esophagus causing other injury, initial encounter (principal); I25.10 Atherosclerotic heart disease of native coronary artery without angina pectoris; E78.00 Pure hypercholesterolemia, unspecified; I10 Essential (primary) hypertension; J44.9 Chronic obstructive pulmonary disease, unspecified; E66.9 Obesity, unspecified; Z68.39 Body mass index [BMI] 39.0-39.9, adult; Z88.0 Allergy status to penicillin; Z79.82 Long term (current) use of aspirin; Z79.899 Other long term (current) drug therapy
CPT/HCPCS: 99283

== ENCOUNTER 2021-08-11 22:18 | Emergency (ER) | payer MEDICARE, OTHER ==
[2021-08-11] MEDS ORDERED: Aspirin 81 MG Tab.Chew PO ONE (22:51)
[2021-08-11 23:27] LABS: CARBON DIOXIDE,CO2 24.8 mmol/L (21.0-32.0); POTASSIUM,K 4.3 mmol/L (3.5-5.1)
[2021-08-11] MEDS ORDERED: Lactated Ringers 1,000 ML IV STA (23:45)
[2021-08-11] MEDS ORDERED: Albuterol/Ipratropium 3.0-0.5 MG/3 ML Neb Soln NEB ONE (23:55)
[2021-08-12 00:47] VITALS: PULSE 98
[2021-08-12 02:26] VITALS: BP 126/54
== END 2021-08-12 02:05 | disposition home or self-care (01) ==
LOC: MW.ED 22:18
DX: R00.2 Palpitations (principal); I25.10 Atherosclerotic heart disease of native coronary artery without angina pectoris; E78.00 Pure hypercholesterolemia, unspecified; I11.0 Hypertensive heart disease with heart failure; I50.9 Heart failure, unspecified; J44.9 Chronic obstructive pulmonary disease, unspecified; K21.9 Gastro-esophageal reflux disease without esophagitis; E66.9 Obesity, unspecified; Z68.39 Body mass index [BMI] 39.0-39.9, adult; Z88.0 Allergy status to penicillin; Z87.891 Personal history of nicotine dependence; Z20.822 Contact with and (suspected) exposure to COVID-19
CPT/HCPCS: 36415; 80053; 83735; 84484; 85025; 85610; 93005; 94640; 96360; 99285; A9270; J7120; U0002; J7620-GY

== ENCOUNTER 2021-11-02 07:51 | Emergency (ER) | payer MEDICARE, OTHER ==
[2021-11-02 08:44] LABS: CARBON DIOXIDE,CO2 27.2 mmol/L (21.0-32.0); POTASSIUM,K 3.5 mmol/L (3.5-5.1)
[2021-11-02 10:43] VITALS: BP 111/49; PULSE 62
== END 2021-11-02 10:44 | disposition home or self-care (01) ==
LOC: MW.ED 07:51
DX: R55 Syncope and collapse (principal); H83.09 Labyrinthitis, unspecified ear; Z88.0 Allergy status to penicillin; I11.0 Hypertensive heart disease with heart failure; I50.9 Heart failure, unspecified; E78.00 Pure hypercholesterolemia, unspecified; I25.10 Atherosclerotic heart disease of native coronary artery without angina pectoris; I48.91 Unspecified atrial fibrillation; E66.9 Obesity, unspecified; Z68.38 Body mass index [BMI] 38.0-38.9, adult; Z79.899 Other long term (current) drug therapy
CPT/HCPCS: 36415; 70450; 71045; 80053; 84484; 85025; 93005; 99285; U0002

== ENCOUNTER 2021-11-04 12:35 | Emergency (ER) | payer MEDICARE, OTHER ==
[2021-11-04 12:51] VITALS: BP 102/57; PULSE 74
[2021-11-04 14:01] LABS: CARBON DIOXIDE,CO2 30.9 mmol/L (21.0-32.0); POTASSIUM,K 3.5 mmol/L (3.5-5.1)
[2021-11-04] MEDS: Nitrofurantoin Monohydrate/Macrocrystalline 100 MG Cap PO ONE (15:09)
== END 2021-11-04 15:14 | disposition home or self-care (01) ==
LOC: MW.ED 12:35
DX: N30.00 Acute cystitis without hematuria (principal); I48.91 Unspecified atrial fibrillation; I25.10 Atherosclerotic heart disease of native coronary artery without angina pectoris; J44.9 Chronic obstructive pulmonary disease, unspecified; E78.00 Pure hypercholesterolemia, unspecified; E66.9 Obesity, unspecified; Z68.38 Body mass index [BMI] 38.0-38.9, adult; Z88.0 Allergy status to penicillin; Z79.82 Long term (current) use of aspirin; Z79.899 Other long term (current) drug therapy; Z20.822 Contact with and (suspected) exposure to COVID-19
CPT/HCPCS: 36415; 80053; 81001; 84484; 85025; 87086; 99283; A9270; U0002

== ENCOUNTER 2022-04-29 11:16 | Emergency (ER) | payer MEDICARE, OTHER ==
[2022-04-29 13:39] LABS: CARBON DIOXIDE,CO2 31.3 mmol/L (21.0-32.0)
[2022-04-29 13:42] LABS: CORONAVIRUS COVID-19 NAA NEGATIVE (NEGATIVE); INFLUENZA A NAA NEGATIVE (NEGATIVE); INFLUENZA B NAA NEGATIVE (NEGATIVE)
[2022-04-29] MEDS ORDERED: Iopamidol 755 MG/ML 500 ML Multipack Bottle IVPUSH STA (14:21)
[2022-04-29 16:34] VITALS: BP 136/41; PULSE 81
== END 2022-04-29 16:32 | disposition home or self-care (01) ==
LOC: MW.ED 11:16
DX: R55 Syncope and collapse (principal); I25.10 Atherosclerotic heart disease of native coronary artery without angina pectoris; I48.91 Unspecified atrial fibrillation; I11.0 Hypertensive heart disease with heart failure; I50.9 Heart failure, unspecified; E78.00 Pure hypercholesterolemia, unspecified; J44.9 Chronic obstructive pulmonary disease, unspecified; M19.90 Unspecified osteoarthritis, unspecified site; E66.9 Obesity, unspecified; Z68.39 Body mass index [BMI] 39.0-39.9, adult; Z87.891 Personal history of nicotine dependence; Z88.0 Allergy status to penicillin; Z79.82 Long term (current) use of aspirin; Z79.899 Other long term (current) drug therapy; Z20.822 Contact with and (suspected) exposure to COVID-19
CPT/HCPCS: 0240U; 36415; 70450; 71045; 71275; 80053; 81001; 84484; 85025; 85379; 99284; Q9967; 72128-26; 93010; 99283

== ENCOUNTER 2023-01-07 23:28 | Emergency (ER) | payer MEDICARE, OTHER ==
[2023-01-07] MEDS ORDERED: Acetaminophen/HYDROcodone 325-5 MG Tab PO ONE (23:50)
[2023-01-08] MEDS ORDERED: Morphine 4 MG/ML Syringe ONE (01:30)
[2023-01-08] MEDS ORDERED: Morphine 4 MG/ML Syringe IVPUSH ONE (01:35)
[2023-01-08 03:23] VITALS: BP 175/84; PULSE 72
== END 2023-01-08 03:23 | disposition home or self-care (01) ==
LOC: MW.ED 23:28
DX: S52.502A Unspecified fracture of the lower end of left radius, initial encounter for closed fracture (principal); I48.91 Unspecified atrial fibrillation; I25.10 Atherosclerotic heart disease of native coronary artery without angina pectoris; I50.9 Heart failure, unspecified; J44.9 Chronic obstructive pulmonary disease, unspecified; Z88.0 Allergy status to penicillin; Z79.899 Other long term (current) drug therapy; Z87.891 Personal history of nicotine dependence; W19.XXXA Unspecified fall, initial encounter
CPT/HCPCS: 25605; 73100; 73110; 96374; 99283; A9270; J2270

== ENCOUNTER 2023-01-09 21:24 | Emergency (ER) | payer MEDICARE, OTHER ==
[2023-01-09 22:47] VITALS: BP 135/62; PULSE 72
== END 2023-01-09 22:45 | disposition home or self-care (01) ==
LOC: MW.ED 21:24
DX: M79.602 Pain in left arm (principal); I25.10 Atherosclerotic heart disease of native coronary artery without angina pectoris; I11.0 Hypertensive heart disease with heart failure; I50.9 Heart failure, unspecified; E78.00 Pure hypercholesterolemia, unspecified; J44.9 Chronic obstructive pulmonary disease, unspecified; M19.90 Unspecified osteoarthritis, unspecified site; E66.9 Obesity, unspecified; Z79.82 Long term (current) use of aspirin; Z79.899 Other long term (current) drug therapy; Z88.0 Allergy status to penicillin; Z68.38 Body mass index [BMI] 38.0-38.9, adult
CPT/HCPCS: 29125; 99283

== ENCOUNTER 2023-12-23 13:01 | Emergency (ER) | payer MEDICARE, OTHER ==
[2023-12-23 13:28] LABS: BASOPHILS ABSOLUTE AUTO 0.03 K/uL (0.00-0.20); BASOPHILS PERCENT AUTO 0.6 % (0.0-1.0); EOSINOPHILS ABSOLUTE AUTO 0.12 K/uL (0.00-0.45); EOSINOPHILS PERCENT AUTO 2.2 % (0.0-6.0); HEMATOCRIT 36.5 % (37.0-47.0); HEMOGLOBIN 12.2 g/dL (12.0-16.0); LYMPHOCYTES ABSOLUTE AUTO 1.35 K/uL (1.00-4.80); LYMPHOCYTES PERCENT AUTO 25.1 % (24.0-44.0); MEAN CORPUSCULAR HEMOGLOBIN 31.6 pg (28.0-32.0); MEAN CORPUSCULAR HGB CONC 33.4 g/dL (32.0-36.0); MEAN CORPUSCULAR VOLUME 94.6 fL (83.0-99.0); MEAN PLATELET VOLUME 8.4 fL (9.4-12.3); MONOCYTES ABSOLUTE AUTO 0.66 K/uL (0.00-0.80); MONOCYTES PERCENT AUTO 12.3 % (0.0-8.0); NEUTROPHILS ABSOLUTE AUTO 3.21 K/uL (1.80-7.70); NEUTROPHILS PERCENT AUTO 59.8 % (41.0-71.0); PLATELET COUNT,PLT 190 K/uL (150-400); RED BLOOD CELL COUNT 3.86 M/uL (4.10-5.30); WHITE BLOOD CELL COUNT,WBC 5.37 K/uL (3.9-11.3)
[2023-12-23 13:58] LABS: ALBUMIN 3.5 g/dL (3.4-5.0); BILIRUBIN TOTAL 0.6 mg/dL (0.2-1.0); CALCIUM 9.2 mg/dL (8.5-10.1); CARBON DIOXIDE,CO2 28.9 mmol/L (21.0-32.0); CREATININE 0.9 mg/dL (0.6-1.0); EST CRCL DRUG DOSING (CG) 33.23 mL/min; PROTEIN TOTAL,TP 6.9 g/dL (6.4-8.2)
[2023-12-23 14:16] LABS: PRO B-TYPE NATRIUR PEPT,BNPPRO 190 pg/mL (0-450)
[2023-12-23 15:41] LABS: APPEARANCE,URINE CLEAR; BILIRUBIN,URINE NEGATIVE (NEGATIVE); COLOR,URINE YELLOW; GLUCOSE,URINE NEGATIVE (NEGATIVE); KETONES,URINE NEGATIVE (NEGATIVE); LEUKOCYTE ESTERASE,URINE NEGATIVE (NEGATIVE); NITRITE,URINE NEGATIVE (NEGATIVE); OCCULT BLOOD,URINE NEGATIVE (NEGATIVE); PH,URINE 5.5 (5.0-8.0); PROTEIN,URINE NEGATIVE (NEGATIVE); UROBILINOGEN,URINE 0.2 EU/dL (<2.0)
[2023-12-23 17:43] VITALS: BP 150/63; PULSE 84
== END 2023-12-23 16:02 | disposition home or self-care (01) ==
LOC: MW.ED 13:01
DX: R06.02 Shortness of breath (principal); I11.0 Hypertensive heart disease with heart failure; I50.9 Heart failure, unspecified; E78.00 Pure hypercholesterolemia, unspecified; E66.9 Obesity, unspecified; Z88.0 Allergy status to penicillin; Z79.899 Other long term (current) drug therapy; Z68.41 Body mass index [BMI] 40.0-44.9, adult; Z75.8 Other problems related to medical facilities and other health care
CPT/HCPCS: 36415; 71046; 71046-26; 80053; 81003; 83690; 83880; 84484; 85025; 93005; 93010; 99282; 99285

== ENCOUNTER 2024-05-30 13:41 | Emergency (ER) | payer MEDICARE, OTHER ==
[2024-05-30] MEDS: methylPREDNISolone Sodium Succinate 40 MG/1 ML SDV IM STA (17:02)
[2024-05-30] MEDS: Ketorolac 30 MG/ML SDV IM STA (17:02)
[2024-05-30 17:36] VITALS: BP 157/81; PULSE 84
== END 2024-05-30 17:37 | disposition home or self-care (01) ==
LOC: MW.ED 13:41
DX: M54.32 Sciatica, left side (principal); I11.0 Hypertensive heart disease with heart failure; I50.9 Heart failure, unspecified; I25.10 Atherosclerotic heart disease of native coronary artery without angina pectoris; I48.91 Unspecified atrial fibrillation; E78.00 Pure hypercholesterolemia, unspecified; J44.9 Chronic obstructive pulmonary disease, unspecified; K21.9 Gastro-esophageal reflux disease without esophagitis; E66.9 Obesity, unspecified; Z79.899 Other long term (current) drug therapy; Z88.0 Allergy status to penicillin; Z75.8 Other problems related to medical facilities and other health care
CPT/HCPCS: 96372; 99283; J1885; J2919

== ENCOUNTER 2024-09-18 15:51 | Emergency (ER) | payer MEDICARE, OTHER ==
[2024-09-18 16:22] LABS: BASOPHILS ABSOLUTE AUTO 0.05 K/uL (0.00-0.20); BASOPHILS PERCENT AUTO 0.9 % (0.0-1.0); EOSINOPHILS ABSOLUTE AUTO 0.21 K/uL (0.00-0.45); EOSINOPHILS PERCENT AUTO 3.9 % (0.0-6.0); HEMATOCRIT 38.2 % (37.0-47.0); HEMOGLOBIN 12.5 g/dL (12.0-16.0); IMMATURE GRAN ABSOLUTE AUTO 0.01 K/uL (0.00-0.05); IMMATURE GRAN PERCENT AUTO 0.2 % (0.0-0.4); LYMPHOCYTES ABSOLUTE AUTO 1.78 K/uL (1.00-4.80); LYMPHOCYTES PERCENT AUTO 32.7 % (24.0-44.0); MEAN CORPUSCULAR HEMOGLOBIN 30.5 pg (28.0-32.0); MEAN CORPUSCULAR HGB CONC 32.7 g/dL (32.0-36.0); MEAN CORPUSCULAR VOLUME 93.2 fL (83.0-99.0); MEAN PLATELET VOLUME 8.6 fL (9.4-12.3); MONOCYTES ABSOLUTE AUTO 0.61 K/uL (0.00-0.80); MONOCYTES PERCENT AUTO 11.2 % (0.0-8.0); NEUTROPHILS ABSOLUTE AUTO 2.79 K/uL (1.80-7.70); NEUTROPHILS PERCENT AUTO 51.1 % (41.0-71.0); PLATELET COUNT,PLT 225 K/uL (150-400); WHITE BLOOD CELL COUNT,WBC 5.45 K/uL (3.9-11.3)
[2024-09-18 16:29] LABS: INR 0.96 (0.86-1.11)
[2024-09-18 16:53] LABS: A/G RATIO 1.1 (0.9-1.6); ALBUMIN 3.6 g/dL (3.4-5.0); BILIRUBIN TOTAL 0.6 mg/dL (0.2-1.0); CALCIUM 8.8 mg/dL (8.5-10.1); CREATININE 1.1 mg/dL (0.6-1.0); EST CRCL DRUG DOSING (CG) 26.68 mL/min; MAGNESIUM 2.2 mg/dL (1.8-2.4); POTASSIUM,K 4.1 mmol/L (3.5-5.1); PROTEIN TOTAL,TP 6.9 g/dL (6.4-8.2)
[2024-09-18 18:58] LABS: APPEARANCE,URINE CLEAR; BILIRUBIN,URINE NEGATIVE (NEGATIVE); COLOR,URINE YELLOW; GLUCOSE,URINE NEGATIVE (NEGATIVE); KETONES,URINE NEGATIVE (NEGATIVE); LEUKOCYTE ESTERASE,URINE NEGATIVE (NEGATIVE); NITRITE,URINE NEGATIVE (NEGATIVE); OCCULT BLOOD,URINE TRACE-INTACT (NEGATIVE); PROTEIN,URINE NEGATIVE (NEGATIVE); UROBILINOGEN,URINE 0.2 EU/dL (<2.0)
[2024-09-18 19:12] LABS: EPITHELIAL CELLS,URINE RARE (NONE-FEW); RBC,URINE 0-2 (0-2/HPF); WBC,URINE 0-2 (0-5/HPF)
[2024-09-18 19:13] LABS: AMORPHOUS SEDIMENT,URINE RARE (NEGATIVE); BACTERIA,URINE NOT SEEN (NEGATIVE)
[2024-09-18 19:35] VITALS: BP 155/67; PULSE 87
== END 2024-09-18 19:35 | disposition home or self-care (01) ==
LOC: MW.ED 15:51
DX: R55 Syncope and collapse (principal); I13.0 Hypertensive heart and chronic kidney disease with heart failure and stage 1 through stage 4 chronic kidney disease, or unspecified chronic kidney disease; I50.9 Heart failure, unspecified; I48.91 Unspecified atrial fibrillation; I25.10 Atherosclerotic heart disease of native coronary artery without angina pectoris; E66.9 Obesity, unspecified; J44.9 Chronic obstructive pulmonary disease, unspecified; M19.90 Unspecified osteoarthritis, unspecified site; Z75.3 Unavailability and inaccessibility of health-care facilities; Z88.0 Allergy status to penicillin; Z79.899 Other long term (current) drug therapy; Z79.51 Long term (current) use of inhaled steroids; Z68.41 Body mass index [BMI] 40.0-44.9, adult
CPT/HCPCS: 36415; 70450; 70450-26; 71045; 71045-26; 80053; 81001; 83735; 83880; 84484; 85025; 85610; 93005; 93010; 99284

== ENCOUNTER 2024-12-01 09:42 | Emergency (ER) | payer MEDICARE, OTHER ==
[2024-12-01 11:15] LABS: BASOPHILS ABSOLUTE AUTO 0.04 K/uL (0.00-0.20); BASOPHILS PERCENT AUTO 0.6 % (0.0-1.0); EOSINOPHILS ABSOLUTE AUTO 0.27 K/uL (0.00-0.45); EOSINOPHILS PERCENT AUTO 3.9 % (0.0-6.0); IMMATURE GRAN ABSOLUTE AUTO 0.02 K/uL (0.00-0.05); IMMATURE GRAN PERCENT AUTO 0.3 % (0.0-0.4); LYMPHOCYTES ABSOLUTE AUTO 2.62 K/uL (1.00-4.80); LYMPHOCYTES PERCENT AUTO 38.0 % (24.0-44.0); MEAN PLATELET VOLUME 8.4 fL (9.4-12.3); MONOCYTES ABSOLUTE AUTO 0.65 K/uL (0.00-0.80); MONOCYTES PERCENT AUTO 9.4 % (0.0-8.0); NEUTROPHILS ABSOLUTE AUTO 3.30 K/uL (1.80-7.70); NEUTROPHILS PERCENT AUTO 47.8 % (41.0-71.0); NRBC ABSOLUTE 0.00 K/uL (0.00-0.02); NRBC PERCENT 0.0 /100WBC (0.0-0.2); PLATELET COUNT,PLT 250 K/uL (150-400); RED BLOOD CELL COUNT 4.19 M/uL (4.10-5.30); WHITE BLOOD CELL COUNT,WBC 6.90 K/uL (3.9-11.3)
[2024-12-01 11:23] LABS: APPEARANCE,URINE CLEAR; GLUCOSE,URINE NEGATIVE (NEGATIVE); OCCULT BLOOD,URINE NEGATIVE (NEGATIVE)
[2024-12-01 11:31] LABS: EPITHELIAL CELLS,URINE FEW (NONE-FEW)
[2024-12-01 11:44] LABS: BLOOD UREA NITROGEN,BUN 18.0 mg/dL (7.0-18.0); CARBON DIOXIDE,CO2 26.8 mmol/L (21.0-32.0); CHLORIDE,CL 103.0 mmol/L (98-107); CREATININE 1.2 mg/dL (0.6-1.0); EST CRCL DRUG DOSING (CG) 24.45 mL/min; GLUCOSE RANDOM 109.0 mg/dL (74-106); POTASSIUM,K 3.6 mmol/L (3.5-5.1); PRO B-TYPE NATRIUR PEPT,BNPPRO 413.0 pg/mL (0-450); SODIUM,NA 144.0 mmol/L (136-145)
[2024-12-01 11:52] LABS: ESTIMATED GFR 44.0 mL/min (>60)
[2024-12-01] MEDS: Iopamidol 755 Mg/ML 100 ML Bottle IVPUSH ONE (12:45)
[2024-12-01 13:04] VITALS: BP 158/70
[2024-12-01 14:51] VITALS: PULSE 98
== END 2024-12-01 14:47 | disposition home or self-care (01) ==
LOC: MW.ED 09:42
DX: R06.02 Shortness of breath (principal); E86.0 Dehydration; I11.0 Hypertensive heart disease with heart failure; I50.9 Heart failure, unspecified; E78.00 Pure hypercholesterolemia, unspecified; J44.9 Chronic obstructive pulmonary disease, unspecified; E66.9 Obesity, unspecified; Z68.41 Body mass index [BMI] 40.0-44.9, adult; Z88.0 Allergy status to penicillin; Z79.51 Long term (current) use of inhaled steroids; Z79.899 Other long term (current) drug therapy
CPT/HCPCS: 36415; 71045; 71275; 80048; 81001; 83735; 83880; 84484; 85025; 93005; 96360; 99285; A9270; J7030; Q9967; 99283